=== PATIENT | female | born 1985 | race Hispanic/Latino ===

== ENCOUNTER 2025-07-07 18:10 | Emergency (ER) | payer SELFPAY ==
[2025-07-07 18:18] VITALS: BP 148/80
[2025-07-07 19:32] VITALS: BMI 36.3
[2025-07-07 22:00] VITALS: BP 128/74
[2025-07-07 22:40] LABS: Hematocrit 40.3 % (37.0-47.0); Hemoglobin 13.1 g/dL (12.0-16.0); Mean Corp Hgb Conc. 32.5 g/dL (33.0-37.0); Mean Corpuscular Volume 87.8 fL (81.0-99.0); Nucleated Red Blood Cells % 0 %; Platelet Count 319 10^3/uL (130-400); Red Cell Dist. Width 14.3 % (11.5-14.5)
[2025-07-07 22:54] LABS: Blood Urea Nitrogen 18 mg/dl (7-17); Calcium 10.2 mg/dl (8.4-10.2); Carbon Dioxide 26 mmol/L (22-30); Chloride 104 mmol/L (98-107); Estimated Creatinine Clearance 81 ml/min; Glucose 99 mg/dl (70-99); Potassium 3.7 mmol/L (3.5-5.1); Sodium 138 mmol/L (135-145); eGFR > 60.00
--- NOTE | 2025-07-07 23:21 | ED.GENMED ---
History of Present Illness
General
Chief Complaint: Skin Problem
Source: patient
Time Seen by Provider: 07/07/25 21:24
History of Present Illness
History of Present Illness:
Note:
CHIEF COMPLAINT(S)
Itchy rash on the upper and lower extremities.
HISTORY OF PRESENT ILLNESS
The patient is a 39-year-old female presenting with an itchy rash. The rash reportedly began after a new detergent was introduced at home. There is no mention of other family members experiencing similar symptoms. The rash started simultaneously
over different areas rather than in a particular spot. The patient denies any tick or insect bites. She has not taken any new medications, either prescribed or [id number], and additional exposure to new soaps or lotions was not indicated.
PHYSICAL EXAM
General: Alert, well-appearing.
Skin: Rash present on upper and lower extremities, deep red in color, non-blanching, papules noted. No purpura noted.
Eye, Ears, Nose, Mouth, and Throat: Oral mucosa normal, tongue normal, eyes normal with clear sclera.
Respiratory: No respiratory distress.
PLAN
- Basic blood work will be conducted to check for any abnormalities and to rule out Lyme disease, results of which will take a day or two.
- If the lab results are normal, treatment with a steroid may be initiated to reduce inflammation and resolve the allergic reaction.
DIFFERENTIAL DIAGNOSIS
The Differential Diagnosis includes, in no particular order and is not limited to:
1. Hypersensitivity vasculitis.
2. Contact dermatitis.
3. Drug eruption.
4. Atopic dermatitis.
5. Urticaria.
6. Erythema multiforme.
7. Psoriasis.
8. Viral exanthem.
9. Fungal infection.
10. Autoimmune disorders.
Disposition:
SUMMARY OF ENCOUNTER
The patient is a 39-year-old female presenting with an itchy, afebrile, and deep-red rash primarily on the extremities. The rash began after initiating a new detergent at home. The patient reports a history of itchiness with detergents, suggesting a
possible allergic reaction. Examination and lab results do not suggest an acute systemic illness. White blood cell count is mildly elevated at 12.7, with a normal hemoglobin of 13.1 and platelet count of 319. Basic metabolic panel is within normal
limits. Lyme disease testing is pending. Given the pruritic nature of the rash and history of detergent sensitivity, an allergic reaction is suspected. The patient is well-appearing and does not exhibit other concerning symptoms.
PLAN
Recommend treatment with a course of steroids to reduce inflammation and manage the allergic reaction. Diphenhydramine (Benadryl) can be used as needed for symptom relief.
INDEPENDENT REVIEW OF LABS AND INTERPRETATION OF TESTS
My independent review of the CBC reveals a white blood cell count of 12.7, indicating mild leukocytosis. Hemoglobin is normal at 13.1, and platelets are normal at 319. My independent review of the BMP shows normal results. Lyme disease testing is
pending.
FOLLOW-UP INSTRUCTIONS
The patient is advised to return for any progressive symptoms or if the rash worsens.
MEDICATION RECONCILIATION
A course of steroids to manage the allergic reaction was recommended. Diphenhydramine (Benadryl) is advised as needed for itching relief.
MEDICAL DECISION MAKING
-Complexity of Data Reviewed:
Differential Diagnosis includes:
1. Hypersensitivity vasculitis.
2. Contact dermatitis.
3. Drug eruption.
4. Atopic dermatitis.
5. Urticaria.
6. Erythema multiforme.
7. Psoriasis.
8. Viral exanthem.
9. Fungal infection.
10. Autoimmune disorders.
-Data:
Category 1
My independent review of CBC shows a white blood cell count of 12.7, hemoglobin at 13.1, and platelets at 319. My review of BMP is normal.
-Risk:
Prescription medication was prescribed, including a course of steroids and diphenhydramine (Benadryl) as needed.
DIAGNOSIS
1. Allergic contact dermatitis (L23.9).
Phy Exam
Physical Exam
Physical Exam:
.
Course
Orders/Labs/Results
Orders:
Orders
07/07/25 22:31
Basic Metabolic Panel Urgent
Complete Blood Count/With Diff Urgent
Lyme Progressive Urgent
07/07/25 23:20
Prednisone [Deltasone] 50 mg PO NOW STA
Abnormal Lab Results
07/07/25
22:31
WBC 12.7 H 10^3/uL
(4.8-10.8)
MCHC 32.5 L g/dL
(33.0-37.0)
Absolute Neuts (auto) 8.2 H 10^3/uL
(1.4-6.5)
Absolute Lymphs (auto) 3.5 H 10^3/uL
(1.2-3.4)
Absolute Monos (auto) 0.8 H 10^3/uL
(0.1-0.6)
BUN 18 H mg/dl
(7-17)
Creatinine 1.1 H mg/dL
(0.6-1.0)
07/07/25 22:31
07/07/25 22:31
Vital Signs
Initial and Last Documented VS:
Initial Vital Signs
Temp Pulse Resp BP Pulse Ox
97.9 F 91 18 148/80 99
07/07/25 18:18 07/07/25 18:18 07/07/25 18:18 07/07/25 18:18 07/07/25 18:18
Last Documented Vital Signs
Temp Pulse Resp BP Pulse Ox
98.1 F 74 18 128/74 100
07/07/25 22:00 07/07/25 22:00 07/07/25 22:00 07/07/25 22:00 07/07/25 23:21
*Pulse Oximetry
SaO2: 100
Oxygen Mode of Delivery: Room air
Patient hypoxic: no
*Critical Care Note
Total Time (30-74mins, 75-104mins- exclusive of procedures): Not Applicable
ED Attending Note
-
Portions of this chart may have been created with voice recognition software.� Occasional wrong word or��sound alike� substitutions may have occurred due to the inherent limitations of voice recognition software.
Discharge Plan
Departure
Patient Disposition: Home (Routine Discharge)
Date of Disposition: 07/07/25
Time of Disposition: 23:22
Patient with high blood pressure during this ER visit?: No
Discharge Problem:
Rash, Allergic reaction
Instructions: Skin Rash (DC), Allergic reaction - ED (DC)
Prescriptions:
New
prednisone 10 mg Tablet
See Rx Instructions .ROUTE .COMPLEX Qty: 30 0RF
Rx Instructions:
Take By Mouth:
40 mg daily x3 days, 30 mg daily x3 days,
20 mg daily x3 days, 10 mg daily x3 days.
Referrals:
UNKNOWN - PT DOES,NOT KNOW [Family Provider]
Activity Restrictions/Additional Instructions:
Please use Benadryl as needed every 8 hours over the next 2 to 3 days. Return immediately for fevers, worsening rash, changes in mentation, weakness or any other concerns. Please see your doctor next 1 week for follow-up and reevaluation.
Use Benadryl seg�n sea necesario cada 8 horas tracy los pr�ximos 2 a 3 d�as. Regrese de inmediato si presenta fiebre, empeoramiento del sarpullido, cambios en el estado mental, debilidad o cualquier otra inquietud. Consulte a erazo m�dico la pr�xima
semana para seguimiento y reevaluaci�n.
Interventions
Interventions:
*Risk Screen - Suicide Last Done: 07/07/25 18:18
*General Assessment Last Done: 07/07/25 18:18
*Neglect/Abuse Screening Last Done: 07/07/25 18:18
*ED- Fall Risk Assessment Last Done: 07/07/25 18:18
*ED COVID-19 Vaccine History Last Done: 07/07/25 18:18
ED-Skin Assessment Last Done: 07/07/25 19:32
Discharge Date and Time
Print Language: ISRAELI
[2025-07-07] MEDS: DELTASONE 50 MG PO (23:40)
[2025-07-08 15:10] LABS: Lyme Antibody Screen, EIA Negative (Negative)
== END 2025-07-07 23:57 | disposition home or self-care (01) ==
LOC: EMR 18:10
PROVIDERS: EMERGENCY PHYSICIAN Emergency Medicine
DX: L23.5 Allergic contact dermatitis due to other chemical products (principal)
CPT/HCPCS: 99283; 80048; 85025; 86618